=== PATIENT | male | born 1930 | race Caucasian/White ===

== ENCOUNTER 2017-12-04 08:22 | Inpatient (IN) | payer OTHER, BC ==
--- NOTE | 2017-12-04 08:56 | EDPHY ---
H & P Time Seen by Provider: 12/04/17 08:54 HPI/ROS: Chief complaint. Unable to sleep HPI. Patient is an 87-year-old male presents emergency department with complaint of hard time sleeping last few nights. [place] and waking up in the middle and night and unable to go back to sleep. He has been coughing somewhat. However denies chest discomfort or fever. Slight shortness of breath with lying down. He has a history of atrial fibrillation and is on Coumadin. No abdominal pain. No unusual leg pain or swelling. Patient is unable to feel palpitations or irregular heartbeat ROS Constitutional. Insomnia Eyes. no problems with vision ENT. no sore throat, no nasal drainage Cardiovascular. no chest pain Respiratory. Cough and some shortness of breath Abdominal. no abdominal pain, no nausea/vomiting, no diarrhea . no problems urinating MS. no calf pain/swelling, no neck/back pain, no joint pain Skin. no rash Lymph. no swollen glands Neuro. no headache, no dizziness, no difficulty walking or with speech Past Medical/Surgical History: Past medical history is significant for atrial fibrillation, hypertension hiatal hernia, lymphoma Social History: , nonsmoker, no alcohol Smoking Status: Never smoked Physical Exam: General Appearance: Alert well-developed male mild distress Eyes: Pupils equal and round no pallor or injection. ENT, Mouth: Mucous membranes are moist. Respiratory: There are no retractions, lungs show rales to auscultation. Cardiovascular: Irregularly irregular rate and rhythm with rapid ventricular response Gastrointestinal: Abdomen is soft and nontender, no masses, bowel sounds normal. Neurological: Awake and alert, sensory and motor exams grossly normal. Skin: Warm and dry, no rashes. Musculoskeletal: Neck is supple nontender. Extremities symmetrical, full range of motion. Psychiatric: Patient is oriented X 3, there is no agitation. Constitutional: Initial Vital Signs Temperature (C) 36.7 C 12/04/17 08:30 Heart Rate 101 H 12/04/17 08:30 Respiratory Rate 16 12/04/17 08:30 Blood Pressure 139/91 H 12/04/17 08:30 O2 Sat (%) 92 12/04/17 08:30 O2 Delivery Mode Nasal Cannula O2 (L/minute) 2 Allergies/Adverse Reactions: No Allergies [NKDA] Allergy (Verified 12/04/17 11:21) Home Medications: Medication Instructions Recorded Allopurinol [Allopurinol 100 MG 100 mg PO DAILY 12/04/17 (*)] Dicloxacillin Sodium [Dynapen 500 500 mg PO DAILY 12/04/17 MG (*)] Levothyroxine [Synthroid 75 mcg 75 mcg PO DAILY06 12/04/17 (*)] Multivitamins [Multivitamin (*)] 1 each PO DAILY 12/04/17 Omeprazole 40 mg PO DAILY 12/04/17 Warfarin Sodium [Coumadin 5MG (*)] 5 mg PO MOWEFR 12/04/17 Warfarin Sodium [Coumadin 5MG (*)] 7.5 mg PO SUTUTHSA 12/04/17 amLODIPine BESYLATE [Norvasc 10 mg 10 mg PO DAILY 12/04/17 (*)] Medical Decision Making - Diagnostics EKG Interpretation: EKG interpreted by me EKG is read by computer is supraventricular tachycardia however I think that this is atrial fibrillation. Left axis deviation. QRS is otherwise normal. No significant ST elevation or depression. Ventricular response 164 Imaging Results: Imaging Impressions Chest X-Ray 12/04/17 09:04 Impression: Congestive heart failure. Chest x-ray interpreted by me is significant for congestive heart failure. Appears to be bilateral pleural effusions. Procedures: IV normal saline, monitor. Diltiazem 10 mg intravenously and then diltiazem drip is ordered ED Course/Re-evaluation: I consulted discussed the case with Dr. Kang for cardiology who sees the patient in the emergency I consulted discussed case with for Cardiology who sees the patient in the emergency department I consulted discussed case with Dr. Garza, hospitalist, who agrees to the admission The patient is and I discussed imaging lab EKG findings. We discussed treatment plan including recommendation for admission. They expressed understanding and agreement Differential Diagnosis: This appears to be atrial fibrillation with congestive heart failure. I considered acute coronary syndrome as well as pneumonia. - Data Points Laboratory Results: Laboratory Results 12/04/17 08:55 12/04/17 08:55 12/04/17 12/04/17 12/04/17 10:00 09:07 08:55 WBC RBC Hgb Hct MCV MCH MCHC RDW Plt Count PT INR APTT Sodium Potassium Chloride Carbon Dioxide Anion Gap BUN Creatinine Estimated GFR Glucose Calcium Magnesium 1.7 mg/dL mg/dL (1.6-2.3) Total Bilirubin AST ALT Alkaline Phosphatase POC Troponin I 0.00 ng/mL ng/mL (0.00-0.08) NT-Pro-B Natriuret Pep 2730 pg/mL H pg/mL (0-450) Total Protein Albumin TSH 3.440 uIU/mL uIU/mL (0.465-4.680) 12/04/17 12/04/17 12/04/17 08:55 08:55 08:55 WBC 9.59 10^3/uL H 10^3/uL (3.80-9.50) RBC 4.80 10^6/uL 10^6/uL (4.40-6.38) Hgb 14.0 g/dL g/dL (13.7-17.5) Hct 41.9 % % (40.0-51.0) MCV 87.3 fL fL (81.5-99.8) MCH 29.2 pg pg (27.9-34.1) MCHC 33.4 g/dL g/dL (32.4-36.7) RDW 15.6 % H % (11.5-15.2) Plt Count 307 10^3/uL 10^3/uL (150-400) PT 26.8 SEC H SEC (12.0-15.0) INR 2.48 H (0.83-1.16) APTT 39.3 SEC H SEC (23.0-38.0) Sodium 139 mEq/L mEq/L (135-145) Potassium 4.5 mEq/L mEq/L (3.3-5.0) Chloride 106 mEq/L mEq/L (97-110) Carbon Dioxide 24 mEq/l mEq/l (22-31) Anion Gap 9 mEq/L mEq/L (8-16) BUN 18 mg/dL mg/dL (7-23) Creatinine 1.0 mg/dL mg/dL (0.7-1.3) Estimated GFR > 60 Glucose 124 mg/dL H mg/dL (70-100) Calcium 9.4 mg/dL mg/dL (8.5-10.4) Magnesium Total Bilirubin 1.0 mg/dL mg/dL (0.1-1.4) AST 66 IU/L H IU/L (17-59) ALT 83 IU/L H IU/L (21-72) Alkaline Phosphatase 76 IU/L IU/L (38-126) POC Troponin I NT-Pro-B Natriuret Pep Total Protein 6.9 g/dL g/dL (6.3-8.2) Albumin 4.0 g/dL g/dL (3.5-5.0) TSH Medications Given: Furosemide (Lasix Injection) 20 mg IVP BIDDIUR CORY Stop: 06/02/18 14:59 Last Admin: 12/04/17 13:40 Dose: 20 mg Amiodarone HCl (Amiodarone Hcl) 200 mls @ 33.333 mls/hr IV ONCE ONE PRN Reason: Protocol Stop: 12/04/17 18:59 Last Admin: 12/04/17 14:04 Dose: 200 mls Discontinued Medications Diltiazem HCl (Cardizem 25 Mg/5 Ml Vial) 20 mg IVP EDNOW ONE Stop: 12/04/17 09:04 Last Admin: 12/04/17 09:09 Dose: 20 mg Diltiazem HCl 125 mg/ Dextrose 125 mls @ 0 mls/hr IV EDNOW ONE; As Directed PRN Reason: Protocol Stop: 12/04/17 09:04 Last Admin: 12/04/17 09:39 Dose: 125 mls Sodium Chloride (Ns) 1,000 mls @ 0 mls/hr IV EDNOW ONE; Wide Open PRN Reason: Protocol Stop: 12/04/17 09:04 Last Admin: 12/04/17 09:10 Dose: 1,000 mls Amiodarone HCl (Amiodarone Hcl) 100 mls @ 600 mls/hr IV ONCE ONE Stop: 12/04/17 13:09 Last Admin: 12/04/17 13:40 Dose: 100 mls Point of Care Test Results: Chemistry 12/04/17 09:07 POC Troponin I 0.00 ng/mL ng/mL (0.00-0.08) Departure - Departure Disposition: [facility] Inpatient Acute Clinical Impression: Atrial fibrillation Qualifiers: Atrial fibrillation type: unspecified Qualified Code(s): I48.91 - Unspecified atrial fibrillation Congestive heart failure Qualifiers: Heart failure type: unspecified Heart failure chronicity: unspecified Qualified Code(s): I50.9 - Heart failure, unspecified Condition: Fair
[2017-12-04] MEDS ORDERED: NS 1,000 ML IV ONE (09:03)
[2017-12-04] MEDS ORDERED: DILTIAZEM 25 MG/5 ML VIAL IVP ONE (09:03)
[2017-12-04] MEDS ORDERED: DILTIAZEM 125 MG in D5W 125 ML IV ONE (09:03)
[2017-12-04 09:23] LABS: INR 2.48 (0.83-1.16); PROTIME(PATIENT) 26.8 SEC (12.0-15.0)
--- NOTE | 2017-12-04 11:45 | GCON ---
[f rep st] CONSULTATION DATE OF CONSULTATION: 12/04/2017 REFERRING PHYSICIAN: Jim Garrido MD INDICATION FOR CONSULTATION: Atrial fibrillation with rapid ventricular response and symptoms consis tent with new onset congestive heart failure. HISTORY OF PRESENT ILLNESS: The patient is a pleasant 87-year-old gentleman who presents to [facility] Emergency Department with complaints of difficulty sleeping and fatigue. He repor ts that over the last several days, he has been waking up around midnight or 1 o'clock in the morning and unable to go back to sleep. He states he typically goes to bed around 9 o'clock to 9:30. He fung s noted that when he wakes up he feels short of breath. He has also required 3 pillows to be comfort able, which is new for him. He has also noticed a 3 pounds weight gain and new onset of ankle edema. The patient has a known history of atrial fibrillation dating back to 2012, at the time of a hernia r epair surgery. He has been followed by my colleague, Dr. Bridger Mota for paroxysmal atrial fibril lation. He has remained on anticoagulation for stroke risk reduction with Coumadin. His INR has bee n therapeutic dating back to October 07, 2017, with a value of 3.23. His INR today is 2.48. The patient in the past has not been able to detect when he is in atrial fibrillation. At the time o f my examination he is in atrial fibrillation with rapid ventricular response at approximately 160 be ats per minute. He is unaware of his atrial fibrillation. He describes since early September feeling more dyspneic with exertion. He has also noted exertional intolerance and fatigue. He describes yesterd ay walking from the [employer] over to [facility] and was markedly fatigued and short of breat h. He has also noticed increased coughing. He denies complaints of chest pain, chest pressure, palpitations, dizziness, lightheadedness, near sy ncope, or syncope. No complaints of nausea, vomiting, or diaphoresis. No recent viral illness. He has recently returned from a trip to [place]. 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 Currently at the time of my exam, he is resting comfortably without complaint, in atrial fibrillation at 160 beats per minute. He is currently on a diltiazem drip. REVIEW OF SYSTEMS: 10-point review of systems is negative with the exception of those items listed a keyonna. PAST MEDICAL HISTORY: Paroxysmal atrial fibrillation initially detected in 2012, at the time, hernia repair surgery, BPH, GERD, gout, history of lymphoma treated with R-CHOP in 2002, hypertension, hypo thyroidism, peripheral neuropathy, peripheral vascular disease, history of shingles, encephalitis. PAST SURGICAL HISTORY: Appendectomy, hiatal hernia repair, bilateral knee replacements in 2005. Of note, he is on chronic antibiotic suppressive therapy after a knee infection requiring incision an d drainage. MEDICATIONS: On admission, include allopurinol 100 mg daily, dicloxacillin 500 mg daily, lysine 1000 mg daily, multivitamin daily, Norvasc 10 mg daily, PreserVision caplet daily, Prilosec 40 mg daily, Synthroid 75 mcg daily, Viagra 100 mg half tablet by mouth p.r.n., Coumadin as directed. Most recent INR today of 2.48. ALLERGIES: No known allergies to medications. SOCIAL HISTORY: He is . He lives with his . He is a lifelong nonsmoker. He does drink approximately 2 glasses of wine per night. He states he may consume more alcohol during his recent t rip to [facility]. 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 PHYSICAL EXAMINATION: VITAL SIGNS: Blood pressure 126/101, heart rate of 136 in atrial fibrillation , respiratory rate of 20, oxygen saturation 94% on 2 L. GENERAL: He is awake, alert, oriented, appr opriate in no apparent distress. NECK: There is no evidence of JVP sitting at 45 degree angle. No evidence of carotid bruits. LUNGS: Demonstrate clear breath sounds bilaterally. CARDIAC: S1, S2. Irregularly irregular, tachycardic. No murmurs, rubs, or gallops. ABDOMEN: Soft, nontender, nondi stended. There is no pulsatile mass or abdominal bruits. EXTREMITIES: He does have trace bilateral ankle edema, right slightly greater than left. NEUROLOGIC: He is awake, alert, oriented, appropria te. No focal neurologic findings. Cranial nerves are intact. DATA: ECG demonstrates atrial fibrillation with rapid ventricular response, left axis deviation. No evidence of ischemic changes. White blood cell count 9.59, hemoglobin of 14, hematocrit 41.9, platelet count 307. INR 2.48. Sodiu m 139, potassium 4.5, chloride 106, bicarb 24, BUN 18, creatinine 1, calcium 9.4, magnesium pending. AST 66, ALT 83. N terminal proBNP 2730. TSH pending. Albumin 4, total protein 6.9. Chest x-ray demonstrates moderate cardiomegaly with an increased interstitial markings in both lungs consistent with pulmonary edema. No evidence of pleural effusion or pneumothorax. SUMMARY: The patient is pleasant 87-year-old gentleman who presents today with several days of sympt oms consistent with paroxysmal nocturnal dyspnea and orthopnea. He has a known history of paroxysmal atrial fibrillation dating back to 2012, that has been asymptomatic. I am concerned he has been in atrial fibrillation for at least several weeks with rapid ventricular response. Concern about tachy mediated myopathy in the setting of elevated BNP, 3 pounds weight gain, new onset of lower extremity edema, and chest x-ray consistent with early stages of congestive heart failure. He is currently n.p .o. His INR has been therapeutic on multiple checks. On October 07, he was 3.23; on October 28, he was 3.2; on November 18, he was 2.5; and today he is 2.48. Magnesium and TSH are pending. Echocardiogram is pending this morning. Would like to review echocar diogram, magnesium, and TSH before considering cardioversion later today. He is currently on diltiaz em drip. Would not give further boluses at this point until we can reassess his left ventricular fun ction. May ultimately switch to amiodarone. I think he needs admission and he will require further workup, including risk stratification for unde rlying causes of atrial fibrillation, including potentially stress testing. Our focus will primarily initially be on a rate control versus return to sinus rhythm. PLAN: 1. Continue diltiazem drip at this point without further boluses. 2. Echocardiogram to be performed this morning. 3. Patient will continue with current dose of Coumadin. 4. Magnesium and TSH results pending. 5. Will consider cardioversion potentially later today depending on the results of echocardiogram. 6. Will continue to follow along with his care. /[id number]/MODL
--- NOTE | 2017-12-04 12:03 | ECHO ---
[email or web address] [address] [address] Main: [phone] Fax: [email or web address] Echocardiogram Name: CASTILLO NEAL MR#: [id number] Study Date: 12/04/2017 Study Time: 11:27 AM Date of : 1930 Age: 87 year(s) Height: 188 cm (74 in.) Weight: 86.18 kg (190 lb.) BSA: 2.13 m2 Gender: Male Examination: Echo Indication: A fib Image Quality: Adequate Contrast: Requested by: Jim Garrido BP: 125 mmHg/106 mmHg Heart Rate: Rhythm: Indication: A fib Procedure Staff Lawn Care Worker: Cherri Early [facility] Reading Physician: Antonio Kang MD Requesting Provider: Conclusions: Normal size left ventricle. Mild to moderate LVH. Moderately reduced systolic LV function. The ejection fraction is estimated to be 30-35 %. Mildly dilated right ventricle. Normal RV function. The left atrium is severely dilated. The right atrium is moderately dilated. Moderate to severe mitral regurgitation. Mild tricuspid regurgitation is present. Right ventricular systolic pressure measures 41mmHg. No pericardial effusion. Measurements: Chambers Valvular Assessment AV/MV Valvular Assessment TV/PV Normal Normal Normal Name Value Range Name Value Range Name Value Range Ao Maci (2D): 3.9 cm (1.4 cm-2.6 AV Vmax: 0.98 m/s (1 m/s-1.7 TR Vmax: 2.99 mm/s ( - ) cm) m/s) TR PGmax: 36 mmHg ( - ) IVSd (2D): 1.1 cm (0.6 cm-1.1 AV maxP mmHg ( - ) syst. PAP: 41 mmHg ( - ) cm) AV meanP mmHg ( - ) PV Vmax: 0.62 m/s (0.6 m/s-0.9 LVDd (2D): 3.8 cm (4.2 cm-5.9 LVOT Vmax: 0.90 m/s (0.7 m/s-1.1 m/s) cm) m/s) PV PGmax: 2 mmHg ( - ) LVDs (2D): 3.4 cm (2.1 cm-4 ZANE (Vmax): 3.5 cm2 ( - ) cm) ZANE (VTI): 3.7 cm ( - ) LVPWd (2D): 1.1 cm (0.6 cm-1 MV E Vmax: 1.22 m/s ( - ) cm) MV PHT: 0.036 s ( - ) LVOTd 2.2 cm 2.2 cm mm MVA (PHT): 6.1 s ( - ) EF Range: 30-35 % RVDd(2D): 3.2 cm (1.9 cm-3.8 cmmm) Patient: CASTILLO NEAL Study Date: 12/04/2017 Page 1 of 2 11:27 AM Continued Measurements: Chambers Valvular Assessment AV/MV Valvular Assessment TV/PV Name Value Name Value Name Value LADs: 4.2 cm MV DecTime: 123 m/s CVP (est.): 5 mmHg LADs Lon.5 cm MR ERO: 0.550 cm2 LA Area: 33.1 cm2 MR PISA radius: 10 mm LA Volume: 129 ml MR Reg. Volume: 67 ml LA Volume Index: 60.6 ml/m2 RA Area: 28.8 cm2 Findings: Left Ventricle: Normal size left ventricle. Mild to moderate LVH. Moderately reduced systolic LV function. The ejection fraction is estimated to be 30-35 %. Unable to assess diastolic dysfunction. Right Ventricle: Mildly dilated right ventricle. Normal RV function. Left Atrium: The left atrium is severely dilated. Right Atrium: The right atrium is moderately dilated. Mitral Valve: Mild mitral valve leaflet calcification is present. Moderate mitral annular calcification. Moderate to severe mitral regurgitation. Aortic Valve: The aortic valve is tri-leaflet. There is no significant aortic valve regurgitation. No aortic valve stenosis is present. Tricuspid Valve: The tricuspid valve is normal in appearance and function. Mild tricuspid regurgitation is present. The pulmonary artery pressure is mildly increased. Right ventricular systolic pressure measures 41mmHg. Pulmonic Valve: The pulmonic valve is normal in appearance and function. There is no pulmonic regurgitation seen. Aorta: The aorta is normal. Normal size aortic root measuring 3.9 cm. IVC: Subcostal not well seen. Pericardium: No pericardial effusion. No pleural effusion. Exam Comments: Patient refuses to lay on left side, technically difficult. (No Signature Object) Patient: CASTILLO NEAL Study Date: 12/04/2017 Page 2 of 2 11:27 AM [id number]
[2017-12-04] MEDS ORDERED: AMIODARONE HCL 540 MG in D5W 300 ML IV ONE (12:30)
[2017-12-04] MEDS ORDERED: AMIODARONE HCL 200 ML IV ONE (12:31)
[2017-12-04] MEDS ORDERED: AMIODARONE HCL 100 ML IV ONE (12:31)
[2017-12-04] MEDS ORDERED: AMIODARONE A.FIB-6HR INFSN (ORDER 2/3) PREMIX IV ONE (13:00)
[2017-12-04] MEDS ORDERED: AMIODARONE A.FIB-LOAD DOSE(ORDER 1/3) PREMIX IV ONE (13:00)
--- NOTE | 2017-12-04 13:13 | PDGENHP ---
History and Physical History and Physical: CC: Orthopnea and fatigue HISTORY: This gentleman who has history of 1 episode of atrial fibrillation after a hernia surgery in 2013 but no other heart history, comes into the ER complaining of gradually worsening fatigue, exertional dyspnea, orthopnea, and paroxysmal nocturnal dyspnea. He has had a little ankle swelling and some weight gain as well. He is not entirely clear on the time course of this change. He has not had any palpitations or chest pain, nor did he have any palpitations with his prior episode of AFib. He is on a low-salt diet and has had no change in medications. He has not had a cough or fevers. He did travel from here to [facility] and back a little over week ago for his son's wedding. He has been on chronic Coumadin anticoagulation and it sounds like that has gone well for him. His most recent echocardiogram is in 2012 which showed ejection fraction 60% and mild mitral regurgitation otherwise unremarkable. Note that the patient's memory is slightly impaired, possibly due to his past history of closed head injury. There could be some potential in accuracy in the history as he presented. His is not currently here to confirm details. However he is given a consistent story to eat to the practitioners here today so far ROS: A comprehensive 10 system review revealed no other significant findings PAST MEDICAL HISTORY: Paroxysmal atrial fibrillation Peripheral vascular disease Lymphoma Shingles Incarcerated hernia repair Acute encephalitis Hypothyroidism Easy bruising Hypertension Closed head injury Peripheral neuropathy Reflux, history of esophageal dilation, presbyesophagus UTI Low testosterone Gout Osteoarthritis Appendectomy Total knee replacements ERectile dysfunction BPH Joint infection FAMILY MEDICAL HISTORY: No significant concerning issues for his current illness SOCIAL HISTORY: 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 I have reviewed the list and ordered appropriate medicines. 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 Kang. 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 Kang, will continue the bolus and loading doses intravenously, eventual transition to p.o. * Plan on possible cardioversion tomorrow if he does not convert on the amiodarone * May need to add some beta-charo for additional rate control if he stays in AFib * Diuresis with intravenous Lasix * Continue current Coumadin * Follow electrolytes closely, magnesium level currently pending * Follow liver enzymes for resolution with treatment of his heart failure; if these do not resolve may need assessment for other possible causes * will need some type of coronary assessment at some point, will review this further with Cardiology as we go along I have reviewed the patient's case in detail with Dr. Bridger Kang I have reviewed the patient's past medical records as part of this assessment, including previous hospital admission records and outpatient clinic records echocardiogram reports lab data etc
[2017-12-04] MEDS ORDERED: DILTIAZEM 125 MG in D5W 125 ML IV SCH (13:15)
[2017-12-04] MEDS: FUROSEMIDE 20 MG/2 ML VIAL IVP SCH (13:40)
[2017-12-04] MEDS ORDERED: ACETAMINOPHEN 325 MG TAB PO PRN (13:47)
[2017-12-04] MEDS ORDERED: ZOLPIDEM TARTRATE 5 MG TAB PO PRN (13:47)
[2017-12-04] MEDS ORDERED: ONDANSETRON 4 MG/2 ML VIAL IVP PRN (13:47)
--- NOTE | 2017-12-04 15:59 | CPEKG ---
Test Reason : OPEN Blood Pressure : / mmHG Vent. Rate : 164 BPM Atrial Rate : 169 BPM P-R Int : 126 ms QRS Dur : 084 ms QT Int : 293 ms P-R-T Axes : 030 -36 046 degrees QTc Int : 484 ms atrial fibrillation with RVRa Left axis deviation ST depression, probably rate related Confirmed by Jim Garrido [id number]) on 12/04/2017 3:59:09 PM Referred By: Confirmed By:Jim Garrido
[2017-12-04] MEDS ORDERED: WARFARIN SODIUM 5 MG TAB PO SCH (16:00)
[2017-12-04] MEDS ORDERED: CALCIUM CARBONATE 500 MG CHEWABLE TAB PO PRN (16:17)
[2017-12-04] MEDS: MAGNESIUM OXIDE 400 MG TAB PO SCH (16:47)
--- NOTE | 2017-12-04 17:16 | PDMN ---
Medical Necessity Medical necessity: Pt meets IP criteria per MD & MCG M-505; est los >2 mn for eval/tx of AFIB w/RVR & heart failure w/worsening fatigue, exertional dyspnea, orthopnea, cardiomyopathy with EF of 30-35% & elevated hepatic transaminases; requiring further cardiac monitoring, IV Amiodarone, IV Diltiazem, IV Lasix, Cardiology consult w/possible cardioversion & follow-up labs; hx AFIB on AC, PVD , lymphoma, mod to severe mitral regurgitation; per H&P & order 12/04/17
[2017-12-04] MEDS ORDERED: AMIODARONE A.FIB-18HR INFSN (ORDER 3/3) IV ONE (20:00)
[2017-12-04] MEDS ORDERED: FUROSEMIDE 20 MG/2 ML VIAL IVP ONE (20:15)
[2017-12-04] MEDS: CARVEDILOL 3.125 MG TAB PO SCH (20:28)
[2017-12-05 04:06] LABS: INR 2.65 (0.83-1.16); PROTIME(PATIENT) 28.2 SEC (12.0-15.0)
[2017-12-05] MEDS: LEVOTHYROXINE 75 MCG TAB PO SCH (06:00)
[2017-12-05] MEDS ORDERED: DILTIAZEM 30 MG TAB PO ONE (09:01)
[2017-12-05] MEDS: MAGNESIUM OXIDE 400 MG TAB PO SCH (09:19)
[2017-12-05] MEDS: PANTOPRAZOLE SODIUM 40 MG TAB PO SCH (09:19)
[2017-12-05] MEDS: CARVEDILOL 3.125 MG TAB PO SCH ×2 (09:19→18:24)
[2017-12-05] MEDS: ALLOPURINOL 100 MG TAB PO SCH (09:19)
[2017-12-05] MEDS ORDERED: NS 1,000 ML IV ONE (09:44)
--- NOTE | 2017-12-05 10:40 | PDCARPN ---
Cardiology Progress Note Assessment/Plan: 87 year-old male known to me from the outpatient setting. Persistent Atrial Fibrillation/Rapid Ventricular Response: Heart rate improved on IV amiodarone but still running 100-120 bpm. - Single PO dose of diltiazem to assist with ventricular rate control. - Plan for JASON/cardioversion later today. - Continue systemic anticoagulation. Cardiomyopathy: This is a new issue. Had normal LV function by echo in 2012. Currently, LVEF is moderately to severely decreased at 30-35%. Presumably tachycardia mediated (i.e.- nonischemic). Acute Systolic CHF: BNP is significantly elevated. Good response to yesterday's intravenous furosemide. I/O negative by 1100 cc. - Continue IV furosemide. 12/05/17 10:37 Subjective: No complaints. Objective: Vital Signs (8 Hrs) Temp Pulse Resp BP Pulse Ox 12/05/17 09:19 128 H 12/05/17 07:30 36.6 C 110 H 18 135/90 H 92 12/05/17 04:00 36.4 C 119 H 20 125/97 H 94 Intake/Output (24 Hrs) 12/04/17 12/05/17 12/06/17 05:59 05:59 05:59 Intake Total 1000 349 Output Total 2100 175 Balance -1100 174 Intake: Oral (ml) 1000 IV Infused (ml) 349 Amiodarone HCl 200 ml @ 200 33.333 mls/hr IV ONCE ONE Rx#:[id number] Amiodarone HCl 540 mg In 149 D5w 300 ml @ 16.667 mls/ hr IV ONCE ONE Rx#: [id number] Output: Urine (ml) 2100 175 Urinal 2100 175 Other: Weight 88.2 kg Number of Voids Toilet 1 Urinal 2 1 Number of Stools Toilet 1 Result Diagrams: 12/04/17 08:55 12/05/17 03:18 Cardiac Labs: Cardiac Lab Results (72 Hrs) 12/04/17 13:14 Troponin I < 0.012 - Physical Exam Constitutional: no apparent distress Eyes: anicteric sclera Ears, Nose, Mouth, Throat: moist mucous membranes Cardiovascular: no murmurs, no gallops, irregularly irregular Respiratory: clear to auscultate bilat Gastrointestinal: normoactive bowel sounds, no tenderness, no masses Skin: other (minimla edema) Neurologic: AAOx3 Psychiatric: not anxious ICD10 Worksheet Patient Problems: Problems Problem Status Onset Atrial fibrillation Acute Congestive heart failure Acute
[2017-12-05] MEDS: FUROSEMIDE 20 MG/2 ML VIAL IVP SCH ×2 (10:51→11:00)
[2017-12-05] MEDS: DICLOXACILLIN NA 500 MG CAP PO SCH (10:59)
[2017-12-05] MEDS: MULTIVITAMINS 1 EACH TAB PO SCH (11:00)
--- NOTE | 2017-12-05 13:07 | HOSPPROG ---
Hospitalist Progress Note Assessment/Plan: DIAGNOSES: * acute systolic and arrhythmic congestive heart failure no prior history of heart failure * new onset cardiomyopathy ejection fraction 30-35%, unknown etiology, consider AFib induced * rapid AFib with 1 prior episode of AFib after surgery years ago; on chronic therapeutic Coumadin not on rate control prior to admission The patient is improved after diuresis overnight. His heart rate is still rapid with the addition of amiodarone and Coreg which is at low dose (he did not appear to respond to diltiazem drip yesterday, and Coreg was started instead due to his cardiomyopathy) PLANS: * Continue carvedilol IV drip and switch to p.o. 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: Rapid AFib now mostly in the 110-115 range Exam: alert oriented relaxed skin warm dry color ok resps not labored lungs clear BSs heart irregular with tachycardia, no murmurs or gallops abd soft nondistended nontender, bowel sounds present limbs warm, no edema iv site ok Laboratory data: Stable CBC INR 2.6 Objective: Vital Signs Temp Pulse Resp BP Pulse Ox 36.9 C 129 H 18 122/88 H 92 12/05/17 11:19 12/05/17 11:19 12/05/17 11:19 12/05/17 11:19 12/05/17 11:19 Laboratory Results 12/05/17 03:18 12/04/17 12/05/17 12/06/17 06:59 06:59 06:59 Intake Total 1349 Output Total 2100 935 Balance -751 -935 PT 28.2 SEC (12.0-15.0) H 12/05/17 03:18 INR 2.65 (0.83-1.16) H 12/05/17 03:18 ICD10 Worksheet Patient Problems: Problems Problem Status Onset Atrial fibrillation Acute Congestive heart failure Acute
--- NOTE | 2017-12-05 14:12 | ASMTCASEMG ---
Living Arrangements What is your living Answers: With Spouse arrangement? Who do you live with? Type Of Residence What kind of residence do Answers: House you live in? Discharge Plan Comments Coordination Status Comments Notes: Pts case discussed in tx rounds. Pt is a 87 y/o man admitted for afib and CHF. Pt is a relatively healthy and active individual. Pt will have a kenna cardioversion today. Pt will most likely d/c independent when medically stable. No therapies ordered at this time. CM available for changes. Plan: Independent Date Signed: 12/05/2017 02:11 PM Electronically Signed By:TAWANA Martinez
[2017-12-05] MEDS ORDERED: AMIODARONE HCL 100 ML IV ONE (15:30)
[2017-12-05] MEDS ORDERED: WARFARIN SODIUM 5 MG TAB PO SCH (16:00)
[2017-12-05] MEDS ORDERED: DIGOXIN 500 MCG/2 ML AMP IVP ONE (16:21)
[2017-12-05] MEDS: AMIODARONE HCL 200 ML IV SCH (17:24)
[2017-12-05] MEDS ORDERED: HYALURONIDASE 150 UNIT/ML VIAL IF ONE (19:00)
[2017-12-05] MEDS: DIGOXIN 500 MCG/2 ML AMP IVP SCH (22:21)
[2017-12-06] MEDS: AMIODARONE HCL 200 ML IV SCH ×2 (01:59→08:33)
[2017-12-06 04:32] LABS: INR 2.84 (0.83-1.16); PROTIME(PATIENT) 29.7 SEC (12.0-15.0)
[2017-12-06] MEDS: DIGOXIN 500 MCG/2 ML AMP IVP SCH (05:32)
[2017-12-06] MEDS ORDERED: ATROPINE SULFATE 1 MG/10 ML SYR ONE (09:23)
[2017-12-06] MEDS ORDERED: PROPOFOL/EMULSION 500 MG/50 ML BOTTLE IV ONE (09:45)
[2017-12-06] MEDS ORDERED: LIDOCAINE 2% 100 MG/5 ML SYR ONE (09:45)
--- NOTE | 2017-12-06 09:55 | PDANEPAE ---
ANE Past Medical History - Cardiovascular History Hx Hypertension: Yes Hx Arrhythmias: Yes Hx Coronary Artery / Peripheral Vascular Disease: No Cardiovascular History Comment: A FIB DX . NO CP - Pulmonary History Hx COPD: No Hx Asthma/Reactive Airway Disease: No Hx Recent Upper Respiratory Infection: No Hx Oxygen in Use at Home: No Hx Sleep Apnea: No Pulmonary History Comment: NO SOB W STAIRS - Neurologic History Hx Cerebrovascular Accident: No Hx Seizures: No Hx Dementia: No Neurologic History Comment: NEUROPATH JOSELITO TOES - Endocrine History Hx Diabetes: No Endocrine History Comment: LO THYROID RT RADIATION POST LYMPHOMA DX - Renal History Hx Renal Disorders: No - Liver History Hx Hepatic Disorders: No - Neurological & Psychiatric Hx Hx Neurological and Psychiatric Disorders: No - Cancer History Hx Cancer: Yes Cancer History Comment: LYMPHOMA DX '03- TX W CHEMO AND RADIATION - Congenital Disorder History Hx Congenital Disorders: No - GI History Hx Gastrointestinal Disorders: Yes Gastrointestinal History Comment: VENTRAL HERNIA. GERD - Other Health History Other Health History: 1 MISSING TOOTH UPPER R. BRUISES EASILY, TAKES WARFARIN. SHOULDER L DISLOCATION 2012. GOUT. HAD POST OP INFECTION POST KNEE SURG, ON PROPHYLACTIC ANTIBX DAILY - Chronic Pain History Chronic Pain: No - Surgical History Prior Surgeries: APPY. TONSILS. JOSELITO KNEE REPL X2 R, X1L. HIATAL HERNIA REP . UMB HERNIA REP. CATARACTS JOSELITO. PORT ANE Review of Systems Review of Systems: ANE Patient History - Allergies Allergies/Adverse Reactions: No Allergies [NKDA] Allergy (Verified 12/04/17 11:21) - Home Medications Home Medications: Allopurinol [Allopurinol 100 MG (*)] 100 mg PO DAILY 12/04/17 [Last Taken ] Dicloxacillin Sodium [Dynapen 500 MG (*)] 500 mg PO DAILY 12/04/17 [Last Taken 12/04/17] Levothyroxine [Synthroid 75 mcg (*)] 75 mcg PO DAILY06 12/04/17 [Last Taken ] Multivitamins [Multivitamin (*)] 1 each PO DAILY 12/04/17 [Last Taken 12/04/17] Omeprazole 40 mg PO DAILY 12/04/17 [Last Taken 12/04/17] Warfarin Sodium [Coumadin 5MG (*)] 5 mg PO MOWEFR 12/04/17 [Last Taken 12/02/17] Warfarin Sodium [Coumadin 5MG (*)] 7.5 mg PO SUTUTHSA 12/04/17 [Last Taken 12/03] amLODIPine BESYLATE [Norvasc 10 mg (*)] 10 mg PO DAILY 12/04/17 [Last Taken ] - Smoking Hx Smoking Status: Never smoked - Family Anes Hx Family Hx Anesthesia Complications: NONE ANE Labs/Vital Signs - Labs Result Diagrams: 12/04/17 08:55 12/05/17 03:18 - Vital Signs Blood Pressure: 107/84 Heart Rate: 115 Respiratory Rate: 12 O2 Sat (%): 91 Height: 187.96 cm Weight: 89.1 kg ANE Physical Exam - Airway Neck exam: FROM Mallampati Score: Class 2 Mouth exam: poor dentition - Pulmonary Pulmonary: no respiratory distress - Cardiovascular Cardiovascular: regular rate and rhythym - ASA Status ASA Status: III ANE Anesthesia Plan Total IV Anesthesia: Yes
--- NOTE | 2017-12-06 10:16 | POSTANESTH ---
Post Anesthetic Evaluation Cardiovascular Status: Normal, Stable Respiratory Status: Similar to Pre-op Cond. Level of Consciousness/Mental Status: Mildly Sleepy, Arousable Pain Control: Adequate, Prn Tx Ordered Nausea/Vomiting Control: Adequate, Prn Tx Ordered Complications Possibly Related to Anesthesia: None Noted
--- NOTE | 2017-12-06 10:25 | PDTEE1 ---
JASON Cardioversion Procedure Procedure: electrical cardioversion, transesophageal echo Indications: atrial fibrillation Consent: signed and in chart Anticoagulation: warfarin Procedural Details: Pads were placed in anterior-posterior position. JASON probe was advanced and standard images obtained. There is no evidence of left atrial or left atrial appendage thrombus. Synchronized cardioversion attempt #1: 200J Results: normal sinus rhythm Conclusions: successful cardioversion Patient Problems: Problems Problem Status Onset Atrial fibrillation Acute Congestive heart failure Acute
--- NOTE | 2017-12-06 10:31 | PDCARPN ---
Cardiology Progress Note Assessment/Plan: 87 year-old male known to me from the outpatient setting. Persistent Atrial Fibrillation/Rapid Ventricular Response: Had successful cardioversion this a.m. - Continue IV amiodarone until current bag is finished; plan to continue PO 200 mg QD. - Continue systemic anticoagulation. Cardiomyopathy: This is a new issue. Had normal LV function by echo in 2012. Currently, LVEF is moderately to severely decreased at 30-35%. Presumably tachycardia mediated (i.e.- nonischemic). - Continue carvedilol. Acute Systolic CHF: BNP is significantly elevated. Good response to yesterday's intravenous furosemide. I/O negative by 1100 cc. - Continue IV furosemide. Disposition: OK for discharge to home later today. - I have sent instructions to [facility] office staff to contact the patient to arrange for a followup appointment with me within the next 2 weeks. - In the Image Searcher D/C plan, I entered and printed scrips with a year's worth of refills for his new meds: amiodarone and carvedilol. His amlodipine will be DC' ed. 12/06/17 10:36 Subjective: No CV complaints. Objective: Vital Signs (8 Hrs) Temp Pulse Resp BP Pulse Ox 12/06/17 09:55 115 H 12 107/84 H 91 L 12/06/17 08:00 36.7 C 115 H 12 107/84 H 91 L 12/06/17 04:00 36.9 C 124 H 18 112/89 H 92 Intake/Output (24 Hrs) 12/05/17 12/06/17 12/07/17 05:59 05:59 05:59 Intake Total 1000 1494 Output Total 2100 2585 Balance -1100 -1091 Intake: Oral (ml) 1000 820 IV Infused (ml) 674 Amiodarone HCl 200 ml @ 325 33.3 mls/hr IV CONT CORY Rx#:[id number] Amiodarone HCl 200 ml @ 200 33.333 mls/hr IV ONCE ONE Rx#:[id number] Amiodarone HCl 540 mg In 149 D5w 300 ml @ 16.667 mls/ hr IV ONCE ONE Rx#: [id number] Output: Urine (ml) 2100 2585 Toilet 575 Urinal 2099 2009 Other: Weight 88.2 kg 89.1 kg 89.1 kg Number of Voids Toilet 2 Urinal 2 1 Number of Stools Toilet 1 Result Diagrams: 12/04/17 08:55 12/05/17 03:18 Cardiac Labs: Cardiac Lab Results (72 Hrs) 12/04/17 13:14 Troponin I < 0.012 - Physical Exam Constitutional: no apparent distress Eyes: anicteric sclera Ears, Nose, Mouth, Throat: moist mucous membranes Cardiovascular: regular rate and rhythm, no murmurs Respiratory: clear to auscultate bilat Gastrointestinal: normoactive bowel sounds, no tenderness, no masses Skin: other (minimla edema) Neurologic: AAOx3 Psychiatric: not anxious ICD10 Worksheet Patient Problems: Problems Problem Status Onset Atrial fibrillation Acute Congestive heart failure Acute
[2017-12-06] MEDS: PANTOPRAZOLE SODIUM 40 MG TAB PO SCH (12:23)
[2017-12-06] MEDS: ALLOPURINOL 100 MG TAB PO SCH (12:23)
[2017-12-06] MEDS: CARVEDILOL 3.125 MG TAB PO SCH (12:23)
[2017-12-06] MEDS: MAGNESIUM OXIDE 400 MG TAB PO SCH (12:24)
[2017-12-06] MEDS: FUROSEMIDE 20 MG/2 ML VIAL IVP SCH (12:24)
[2017-12-06] MEDS: MULTIVITAMINS 1 EACH TAB PO SCH (12:24)
[2017-12-06] MEDS: LEVOTHYROXINE 75 MCG TAB PO SCH (12:24)
[2017-12-06] MEDS: DICLOXACILLIN NA 500 MG CAP PO SCH (12:29)
--- NOTE | 2017-12-06 12:39 | ASMTDCNOTE ---
Case Management Discharge Discharge Order Complete? Answers: Yes Patient to Obtain Answers: via Family Medications Transportation Arranged Answers: Family/Friends EMTALA Complete Answers: No Case Management Transport Answers: No Form Complete Faxed Final Orders Answers: No Agency/Facility Transfer Answers: No Report Printed & Faxed to Receiving Agency Family Notified Answers: Yes Discharge Comments Notes: Pts case discussed in tx rounds. CM spoke to Mary, significant other. She wanted resources for when she is out of town. CM provided Mary w/ list of non skilled care. Mary already has senior blue book. No other needs at this time. CM available for changes. Plan: Independent Date Signed: 12/06/2017 12:38 PM Electronically Signed By:TAWANA Martinez
--- NOTE | 2017-12-06 12:40 | ASMTLACE ---
LACE Length of stay for Answers: 2 days current admission Acuity / Level of Answers: Yes Care: Did the patient have an inpatient admission? Comorbidities - select Answers: Any tumor (including all that apply lymphoma or leukemia) Congestive heart failure Peripheral vascular disease Other Notes: AFib; HTN # of Emergency department Answers: 1-2 visits in the last 6 months Score: 12 Date Signed: 12/06/2017 12:39 PM Electronically Signed By:TAWANA Martinez
--- NOTE | 2017-12-06 13:44 | PDDCSUM ---
Discharge Summary Discharge Summary: Admission Date: 12/04/2017 Discharge Date: 12/06/2017 Admission/Discharge Diagnoses: Acute Systolic Heart failure exacerbation, new onset cardiomyopathy, A fib with rapid ventricular rate Consults: Cardiology Procedures: Cardioversion Followup: Cardiology, INR check in 2 days Hospital Course Problem List: Persistent Atrial Fibrillation with Rapid Ventricular Response: - Had successful cardioversion on morning of 12/06 - Was transitioned from IV amiodarone to continue PO 200 mg QD. - Continue systemic anticoagulation with Coumadin, INR to be checked in next 2 days Cardiomyopathy: - Currently, LVEF is moderately to severely decreased at 30-35%. Presumably tachycardia mediated (i.e.- nonischemic). - Continue carvedilol 3.125 mg BID, will start ROXI-i as an outpatient Acute Systolic CHF: BNP is significantly elevated. Good response to yesterday's intravenous furosemide. I/O negative by 1100 cc. - Discussed with Cardiology, Dr. Mota, who recommended holding PO Lasix and he will reevaluate in outpatient setting if need to restart Time spent on discharge >35 minutes with >50% of time spent on counseling and education of patient and family
[2017-12-06 14:17] VITALS: BP 123/87
--- NOTE | 2017-12-06 14:58 | ECHO ---
[email or web address] [address] [address] Main: [phone] Fax: Transesophageal Echocardiography Name: CASTILLO NEAL MR#: [id number] Study Date: 12/06/2017 Study Time: 10:01 AM Date of : 1930 Age: 87 year(s) Height: ( ) Weight: ( ) BSA: Gender: Male Examination: JASON Indication: Pre Cardioversion Image Quality: Contrast: Requested by: Bridger Mota Heart Rate: Rhythm: BP: / Procedure Staff Oceanographer Physical: Enrique Calles RDCS Reading Physician: Bridger Mota MD Requesting Provider: JASON Exam Details Measurements: Chambers Valvular Assessment AV/MV Valvular Assessment TV/PV Normal Normal Normal Name Value Range Name Value Range Name Value Range Additional Measurements: Findings: Left Ventricle: Severely reduced systolic LV function. Left Atrium: The left atrium is severely dilated. No thrombus is noted in the left atrium. Left Atrial Appendage: No thrombus in left appendage. There is low flow in in the DHIRAJ with no evidence of . Right Atrium: The right atrium is severely dilated. Mitral Valve: Moderate mitral valve regurgitation is present. Aortic Valve: The aortic valve is tri-leaflet. Exam Comments: Proceeded with successful elective DC cardioversion.. Patient: CASTILLO NEAL Study Date: 12/06/2017 Page 1 of 2 10:01 AM l1n (No Signature Object) Patient: CASTILLO NEAL Study Date: 12/06/2017 Page 2 of 2 10:01 AM [id number]
[2017-12-06] MEDS ORDERED: WARFARIN SODIUM 5 MG TAB PO SCH (16:00)
[2017-12-07] MEDS ORDERED: AMIODARONE HCL 200 MG TAB PO SCH (09:00)
--- NOTE | 2017-12-07 13:13 | CPEKG ---
Test Reason : Blood Pressure : / mmHG Vent. Rate : 060 BPM Atrial Rate : 060 BPM P-R Int : 183 ms QRS Dur : 086 ms QT Int : 483 ms P-R-T Axes : -18 -47 010 degrees QTc Int : 483 ms Sinus rhythm Inferior infarct, old Sinus rhythm has replaced atrial fibrillation as noted on prior ECG Confirmed by Edin Benoit ([id number]) on 12/07/2017 1:13:25 PM Referred By: Confirmed By:Edin Benoit
--- NOTE | 2017-12-07 13:15 | CPEKG ---
Test Reason : OPEN Blood Pressure : / mmHG Vent. Rate : 069 BPM Atrial Rate : 069 BPM P-R Int : 186 ms QRS Dur : 090 ms QT Int : 466 ms P-R-T Axes : 032 -49 016 degrees QTc Int : 500 ms Sinus rhythm Abnormal R-wave progression, early transition Inferior infarct, old Confirmed by Edin Benoit ([id number]) on 12/07/2017 1:14:53 PM Referred By: Confirmed By:Edin Benoit
[2017-12-07] MEDS ORDERED: WARFARIN SODIUM 5 MG TAB PO SCH (16:00)
== END 2017-12-06 15:24 | disposition home or self-care (01) | DRG 308 ==
LOC: F2W 11:42
PROVIDERS: ADMIT Internal Medicine; ATTEND Internal Medicine
PROC: B246ZZ4 Ultrasonography of Right and Left Heart, Transesophageal (ICD-10-PCS; principal; 2017-12-06)
PROC: 5A2204Z Restoration of Cardiac Rhythm, Single (ICD-10-PCS; principal; 2017-12-06)
DX: I48.0 Paroxysmal atrial fibrillation (principal); I11.0 Hypertensive heart disease with heart failure; I50.21 Acute systolic (congestive) heart failure; I42.9 Cardiomyopathy, unspecified; C85.90 Non-Hodgkin lymphoma, unspecified, unspecified site; E03.9 Hypothyroidism, unspecified; M10.9 Gout, unspecified; N40.0 Benign prostatic hyperplasia without lower urinary tract symptoms; K21.9 Gastro-esophageal reflux disease without esophagitis; I73.9 Peripheral vascular disease, unspecified; Z96.653 Presence of artificial knee joint, bilateral; Z79.01 Long term (current) use of anticoagulants; Z87.820 Personal history of traumatic brain injury; Z79.2 Long term (current) use of antibiotics
CPT/HCPCS: 84484-PO; 96365; 96366; J0282; J0461; J1160; J1940; J2001; J2704; J3473

== ENCOUNTER 2017-12-10 07:59 | Emergency (ER) | payer OTHER, BC ==
--- NOTE | 2017-12-10 08:07 | EDPHY ---
H & P Stated Complaint: IRREGULAR HR WITH HX OF AFIB Time Seen by Provider: 12/10/17 08:06 - Personal History Current Tetanus Diphtheria and Acellular Pertussis (TDAP): Yes Tetanus Vaccine Date: 2009 - Medical/Surgical History Hx Asthma: No Hx Chronic Respiratory Disease: No Hx Diabetes: No Hx Cardiac Disease: Yes Hx Renal Disease: No Hx Cirrhosis: No Hx Alcoholism: No Hx HIV/AIDS: No Hx Splenectomy or Spleen Trauma: No Other PMH: peripheral neuropathy - numbness toes, A FIB, HTN, Hiatal HERNIA. lymphoma. bilat TKR, shingles encephalitis, unsteadiness uses hiking poles - Social History Smoking Status: Never smoked Constitutional: Initial Vital Signs Temperature (C) 36.5 C 12/10/17 08:02 Heart Rate 93 12/10/17 08:02 Respiratory Rate 19 12/10/17 08:02 Blood Pressure 137/95 H 12/10/17 08:02 O2 Sat (%) 97 12/10/17 08:02 O2 Delivery Mode [Post Nasal Cannula Procedure 2nd] O2 Delivery Mode [Post Non-Rebreather Mask Procedure 1st] O2 Delivery Mode [Procedural Non-Rebreather Mask 3rd] O2 Delivery Mode [Procedural Non-Rebreather Mask 2nd] O2 Delivery Mode [Procedural Non-Rebreather Mask 1st] O2 Delivery Mode [.Immediate Non-Rebreather Mask Pre-Procedure] O2 Delivery Mode Room Air O2 (L/minute) [Post Procedure 2 2nd] O2 (L/minute) [Post Procedure 15 1st] O2 (L/minute) [Procedural 3rd] 15 O2 (L/minute) [Procedural 2nd] 15 O2 (L/minute) [Procedural 1st] 15 O2 (L/minute) 15 Allergies/Adverse Reactions: No Allergies [NKDA] Allergy (Verified 12/10/17 08:00) Home Medications: Medication Instructions Recorded Allopurinol [Allopurinol 100 MG 100 mg PO DAILY 12/04/17 (*)] Dicloxacillin Sodium [Dynapen 500 500 mg PO DAILY 12/04/17 MG (*)] Levothyroxine [Synthroid 75 mcg 75 mcg PO DAILY06 12/04/17 (*)] Multivitamins [Multivitamin (*)] 1 each PO DAILY 12/04/17 Omeprazole 40 mg PO DAILY 12/04/17 Warfarin Sodium [Coumadin 5MG (*)] 5 mg PO MOWEFR 12/04/17 Warfarin Sodium [Coumadin 5MG (*)] 7.5 mg PO SUTUTHSA 12/04/17 Amiodarone HCl [Pacerone (*)] 200 mg PO DAILY #30 tab 12/06/17 Carvedilol [Coreg (*)] 3.125 mg PO BIDMEAL #60 tab 12/06/17 Medical Decision Making ED Course/Re-evaluation: CHIEF COMPLAINT: Irregular heart rate HISTORY OF PRESENT ILLNESS: The patient is an anticoagulated (Coumadin) 87 y/o male with a history of atrial fibrillation and hypertension complaining of an irregular heart rate this morning. On 12/04/17, 6 days ago, he was admitted to this hospital for atrial fibrillation and had an electrical cardioversion requiring 200J. At the time of discharge he was in a normal rhythm and remained in that normal rhythm for several days. Per his , the patient was coughing more and harder than normal last night. When the patient woke up this morning he noticed the abnormal heart rate and decided to present to the emergency department. He did take Amiodarone and Coreg this morning. He denies headache, chest pain, shortness of breath, abdominal pain, urinary or bowel complaints, numbness, paresthesias, fevers. REVIEW OF SYSTEMS: A comprehensive 10 system review of systems is otherwise negative aside from elements mentioned in the history of present illness and medical decision making. PHYSICAL EXAM: HR, BP, O2 Sat, RR. Temp noted General Appearance: Alert, well hydrated, appropriate, and non-toxic appearing. Head: Atraumatic without scalp tenderness or obvious injury Eyes: Pupils equal, round, reactive to light and accommodation, EOMI, no trauma , no injection. Ears: Clear bilaterally, no perforation, normal landmarks Nose: Atraumatic, no rhinorrhea, clear. Throat: There is no erythema or exudates, no lesions, normal tonsils, mucus membranes moist. Neck: Supple, nontender, no lymphadenopathy. Respiratory: No retractions, no distress, no wheezes, and no accessory muscle use. Lungs are clear to auscultation bilaterally. Cardiovascular: Irregular rate and rhythm, no murmurs, rubs, or gallops. Bilateral carotid, radial, dorsalis pedis, and posterior tibial pulses intact. Good capillary refill all extremities. Gastrointestinal: Abdomen is soft, nontender, non-distended, no masses, no rebound, no guarding, no peritoneal signs. Musculoskeletal: Normal active ROM of all extremities, atraumatic. Neurological: Alert, appropriate, and interactive. The patient has normal DTRs and non-focal cranial nerves, motor, sensory, and cerebellar exam. Skin: No rashes, good turgor, no nodules on palpation. Past medical history: Atrial fibrillation, hypertension, peripheral neuropathy, hiatal hernia, lymphoma, shingles encephalitis Past surgical history: Bilateral TKR Family history: Denies Social history: at bedside, lives in [place], retired DIAGNOSTICS/PROCEDURES/CRITICAL CARE TIME: EKG: The 12 lead EKG was interpreted by myself as atrial flutter with predominant 2:1 AV block and a rate of 138, left anterior fascicular block, prolonged QT interval. See hard copy and/or "tracemaster" electronic copy for interpretation. Procedure: Conscious sedation. Indication: Electrical cardioversion The patient is an appropriate candidate to tolerate procedural sedation. The patient's vitals signs and mental status are appropriate. The risks, benefits and alternatives of the sedation were discussed with the patient. The patient is ASA classification 1. The patient's Mallampati airway score was 1 and the patient did meet the 3-3-2 airway measurements. A time out was completed. The patient was sedated with 40mg IV Ketamine and 60mg IV Propofol. The patient was monitored with continuous pulse oximetry, groundwater monitoring technician and end tidal CO2. There were no complications and no significant hypoxemia. I performed both the sedation and the procedure. The total time I spent at the bedside during the procedural sedation was 25 minutes. The patient was examined after the procedural sedation and has returned to their pre-sedation baseline with normal vital signs and a normal examination. Procedure: Electrical Cardioversion. Indication: Dysrhythmia. Risks, benefits, alternatives discussed with the patient and consent obtained. The patient was on a continuous hall monitor, with airway equipment at the bedside. The patient was on continuous pulse oximetry and passive CO2 monitor. The cardioversion was performed with 360 joules biphasic current. The cardioversion was not successful. The patient tolerated the procedure well with no complications. The procedure was performed by myself. Procedure: Electrical Cardioversion. Indication: Dysrhythmia. Risks, benefits, alternatives discussed with the patient and consent obtained. The patient was on a continuous hall monitor, with airway equipment at the bedside. The patient was on continuous pulse oximetry and passive CO2 monitor. The cardioversion was performed with 360 joules biphasic current. The cardioversion was not successful. The patient tolerated the procedure well with no complications. The procedure was performed by myself. EKG: The 12 lead EKG was interpreted by myself as atrial fibrillation with a rate of 108, left axis deviation, prolonged QT interval. See hard copy and/or "tracemaster" electronic copy for interpretation. Critical care time spent by me, Dr. Schafer, exclusively with this patient was 60 minutes, exclusive of PA time and exclusive of procedures. The organ system at risk was cardiovascular and I performed two cardioversions to prevent worsening of the patients condition. DIFFERENTIAL DIAGNOSIS: The differential diagnosis for the patient's irregular heart rate included but was not limited to atrial fibrillation, myocardial ischemia, pulmonary embolus, chest wall pain, pleural inflammation, and pulmonary infectious causes. MEDICAL DECISION MAKING: The patient is an anticoagulated (Coumadin) 87 y/o male with a history of atrial fibrillation and hypertension presenting with an irregular heart rate this morning. On exam he has an irregular rate and rhythm. The patient had an INR of 2.7 yesterday and most likely went into the irregular rhythm in the middle of the night last night. EKG and labs ordered. 0810: I interpreted patient's EKG as atrial flutter with predominant 2:1 AV block and a rate of 138, left anterior fascicular block, prolonged QT interval. 0825: Reassessed patient and discussed EKG findings. I discussed plan for an electrical cardioversion, which he is comfortable with having. 0835: Reassessed patient and prepared him for the electrical cardioversion. He has a negative POC troponin. There is a slight elevation in his BNP but his room air is normal. 0840: Patient's BP is 101/78 and his HR is 112 beats per minute. 0842: 40mg IV Ketamine and 40mg IV propofol administered. 0843: Additional 20mg IV Propofol administered. 0844: 360J shock administered, patient is still in a-flutter with a rate of 118 0845: Additional shock of 360J administered, he is still in a-flutter with a rate of 109. I will consult with the electric wheelchair repairer as his conversion was not successful. 0850: I interpreted patient's EKG as atrial fibrillation with a rate of 108, left axis deviation, prolonged QT interval. 0856: I consulted with Dr. Maddox, electric wheelchair repairer, regarding this patient to discuss possibility of admission. The patient has no shortness of breath, chest pain or pressure, lightheadedness or dizziness. We will wait for the amiodarone to load into his systems before another cardioversion is preformed. This patient is safe to be discharged home. The patient will need to double Coreg and follow up with Dr. Mota, electric wheelchair repairer. 0902: Reassessed patient and discussed plan for discharge home with a follow up with Dr. Mota. 10mg IV Diltiazem administered prior to discharge. 0958: Reassessed patient, he continues to feel better. I have answered all of their questions and had a long discussion regarding their concerns. Strict return precautions provided; the patient and his are comfortable with this plan. - Data Points Laboratory Results: Laboratory Results 12/10/17 08:15 12/10/17 08:15 12/10/17 12/10/17 12/10/17 08:16 08:15 08:15 WBC RBC Hgb Hct MCV MCH MCHC RDW Plt Count MPV Neut % (Auto) Lymph % (Auto) [place] % (Auto) Eos % (Auto) Baso % (Auto) Nucleat RBC Rel Count Absolute Neuts (auto) Absolute Lymphs (auto) Absolute Monos (auto) Absolute Eos (auto) Absolute Basos (auto) Absolute Nucleated RBC Immature Gran % Immature Gran # PT 28.0 SEC H SEC (12.0-15.0) INR 2.63 H (0.83-1.16) APTT 40.8 SEC H SEC (23.0-38.0) Sodium 138 mEq/L mEq/L (135-145) Potassium 4.5 mEq/L mEq/L (3.3-5.0) Chloride 104 mEq/L mEq/L (97-110) Carbon Dioxide 26 mEq/l mEq/l (22-31) Anion Gap 8 mEq/L mEq/L (8-16) BUN 24 mg/dL H mg/dL (7-23) Creatinine 1.1 mg/dL mg/dL (0.7-1.3) Estimated GFR > 60 Glucose 96 mg/dL mg/dL (70-100) Calcium 9.3 mg/dL mg/dL (8.5-10.4) Magnesium 2.0 mg/dL mg/dL (1.6-2.3) POC Troponin I 0.02 ng/mL ng/mL (0.00-0.08) NT-Pro-B Natriuret Pep 2100 pg/mL H pg/mL (0-450) 12/10/17 08:15 WBC 5.71 10^3/uL 10^3/uL (3.80-9.50) RBC 5.15 10^6/uL 10^6/uL (4.40-6.38) Hgb 15.1 g/dL g/dL (13.7-17.5) Hct 44.7 % % (40.0-51.0) MCV 86.8 fL fL (81.5-99.8) MCH 29.3 pg pg (27.9-34.1) MCHC 33.8 g/dL g/dL (32.4-36.7) RDW 15.1 % % (11.5-15.2) Plt Count 326 10^3/uL 10^3/uL (150-400) MPV 9.6 fL fL (8.7-11.7) Neut % (Auto) 61.1 % % (39.3-74.2) Lymph % (Auto) 18.4 % % (15.0-45.0) [place] % (Auto) 12.6 % % (4.5-13.0) Eos % (Auto) 5.4 % % (0.6-7.6) Baso % (Auto) 1.4 % % (0.3-1.7) Nucleat RBC Rel Count 0.0 % % (0.0-0.2) Absolute Neuts (auto) 3.49 10^3/uL 10^3/uL (1.70-6.50) Absolute Lymphs (auto) 1.05 10^3/uL 10^3/uL (1.00-3.00) Absolute Monos (auto) 0.72 10^3/uL 10^3/uL (0.30-0.80) Absolute Eos (auto) 0.31 10^3/uL 10^3/uL (0.03-0.40) Absolute Basos (auto) 0.08 10^3/uL 10^3/uL (0.02-0.10) Absolute Nucleated RBC 0.00 10^3/uL 10^3/uL (0-0.01) Immature Gran % 1.1 % % (0.0-1.1) Immature Gran # 0.06 10^3/uL 10^3/uL (0.00-0.10) PT INR APTT Sodium Potassium Chloride Carbon Dioxide Anion Gap BUN Creatinine Estimated GFR Glucose Calcium Magnesium POC Troponin I NT-Pro-B Natriuret Pep Medications Given: Discontinued Medications Diltiazem HCl (Cardizem 25 Mg/5 Ml Vial) 10 mg IVP EDNOW ONE Stop: 12/10/17 09:07 Last Admin: 12/10/17 09:09 Dose: 10 mg Ketamine HCl (Ketamine) 40 mg IVP EDNOW ONE Stop: 12/10/17 09:06 Last Admin: 12/10/17 09:09 Dose: 40 mg Propofol (Diprivan) 60 mg IVP EDNOW ONE Stop: 12/10/17 09:05 Last Admin: 12/10/17 09:09 Dose: 60 mg Point of Care Test Results: Chemistry 12/10/17 08:16 POC Troponin I 0.02 ng/mL ng/mL (0.00-0.08) Departure - Departure Disposition: Home, Routine, Self-Care Clinical Impression: Atrial fibrillation Qualifiers: Atrial fibrillation type: unspecified Qualified Code(s): I48.91 - Unspecified atrial fibrillation Condition: Good Instructions: Atrial Flutter (ED), A-fib (Atrial Fibrillation) (ED), Cardioversion (DC) Additional Instructions: 1. Double your dose of Coreg to 6.25 twice a day. 2. Follow-up with Dr. Mota, electric wheelchair repairer, on Tuesday. 3. Return to the Emergency Department for fever, chest pain, shortness of breath , lightheadedness, dizziness, increasing pain or other worsening of condition. Referrals: Jim Bo MD [Primary Care Provider] - As per Instructions Bridger Mota MD [Medical Doctor] - As per Instructions Report Scribed for: David Schafer Report Scribed by: Lindsey Mariee Date of Report: 12/10/17 Time of Report: 08:19
[2017-12-10 08:28] LABS: PLATELET COUNT 326 10^3/uL (150-400)
[2017-12-10] MEDS ORDERED: KETAMINE 200 MG/20 ML VIAL ONE (08:34)
[2017-12-10] MEDS ORDERED: PROPOFOL 200 MG/20 ML VIAL ONE (08:34)
--- NOTE | 2017-12-10 08:51 | CPEKG ---
Test Reason : OPEN Blood Pressure : / mmHG Vent. Rate : 138 BPM Atrial Rate : 309 BPM P-R Int : 093 ms QRS Dur : 088 ms QT Int : 332 ms P-R-T Axes : 000 -43 070 degrees QTc Int : 503 ms Atrial flutter with predominant 2:1 AV block Left anterior fascicular block Prolonged QT interval Confirmed by David Schafer ([id number]) on 12/10/2017 8:51:32 AM Referred By: Confirmed By:David Schafer
[2017-12-10] MEDS ORDERED: PROPOFOL 200 MG/20 ML VIAL IVP ONE (09:04)
[2017-12-10] MEDS ORDERED: KETAMINE 500 MG/10 ML VIAL IVP ONE (09:05)
[2017-12-10] MEDS ORDERED: DILTIAZEM 25 MG/5 ML VIAL IVP ONE (09:06)
[2017-12-10 09:57] LABS: INR 2.63 (0.83-1.16)
[2017-12-10 10:02] VITALS: BP 87/50
--- NOTE | 2017-12-10 10:22 | CPEKG ---
Test Reason : OPEN Blood Pressure : / mmHG Vent. Rate : 108 BPM Atrial Rate : 160 BPM P-R Int : 160 ms QRS Dur : 094 ms QT Int : 396 ms P-R-T Axes : 000 -34 057 degrees QTc Int : 531 ms Atrial fibrillation Left axis deviation Prolonged QT interval Confirmed by David Schafer ([id number]) on 12/10/2017 10:21:51 AM Referred By: Confirmed By:David Schafer
== END 2017-12-10 10:01 | disposition home or self-care (01) ==
PROC: 5A2204Z Restoration of Cardiac Rhythm, Single (ICD-10-PCS; principal; 2017-12-10)
DX: I48.91 Unspecified atrial fibrillation (principal); Z79.01 Long term (current) use of anticoagulants; I10 Essential (primary) hypertension; C85.90 Non-Hodgkin lymphoma, unspecified, unspecified site; Z96.653 Presence of artificial knee joint, bilateral
CPT/HCPCS: 92960; 93005; 96374; 99291; J2704; 84484-PO

== ENCOUNTER 2018-01-05 09:31 | Day surgery (SDC) | payer OTHER, BC ==
[2018-01-05] MEDS ORDERED: MIDAZOLAM 2 MG/2 ML VIAL IVP ONE (09:32)
[2018-01-05] MEDS ORDERED: NS 500 ML IV ONE (09:32)
[2018-01-05] MEDS ORDERED: ATROPINE SULFATE 1 MG/10 ML SYR IVP ONE (09:32)
[2018-01-05] MEDS ORDERED: fentaNYL 100 MCG/2 ML INJ IVP ONE (09:32)
--- NOTE | 2018-01-05 15:42 | CPEKG ---
Test Reason : OPEN Blood Pressure : / mmHG Vent. Rate : 055 BPM Atrial Rate : 056 BPM P-R Int : 196 ms QRS Dur : 101 ms QT Int : 499 ms P-R-T Axes : 047 -31 028 degrees QTc Int : 478 ms Sinus rhythm Left axis deviation Abnormal R-wave progression, early transition Borderline prolonged QT interval Confirmed by Issa Mccracken ([id number]) on 01/05/2018 3:42:33 PM Referred By: Confirmed By:Issa Mccracken
== END 2018-01-05 10:09 | disposition home or self-care (01) ==
LOC: FCATH 09:31
PROVIDERS: ATTEND Internal Medicine Interventional Cardiology
DX: I48.0 Paroxysmal atrial fibrillation (principal); I50.30 Unspecified diastolic (congestive) heart failure; I38 Endocarditis, valve unspecified; Z53.8 Procedure and treatment not carried out for other reasons

== ENCOUNTER 2018-02-22 21:15 | Emergency (ER) | payer OTHER, BC ==
[2018-02-22] MEDS ORDERED: NS 500 ML IV ONE (21:32)
[2018-02-22 21:52] LABS: PLATELET COUNT 285 10^3/uL (150-400)
--- NOTE | 2018-02-22 22:28 | EDPHY ---
H & P Stated Complaint: near syncope, n/v Time Seen by Provider: 02/22/18 22:00 HPI/ROS: HPI The patient presents with an episode of ALOC which occurred just prior to arrival, brought in by ambulance. The patient had is some diarrhea this morning after taking prune juice for constipation. He said that he did not drink much fluid throughout the day though is able to go on a 1 mi walk without difficulty. He went to a dinner tonight and while seated eating dinner he began to feel hot and faint. He felt nauseated. He had several people escort him out of the dinner. Paramedics on arrived. His noticed that during the episode he was slumped over, nonresponsive. He looked sweaty. He says his blood pressures normally 120/70. He has , off of his carvedilol about 10 days ago because it was causing him to feel sleepy. He is not sure if he may have taken an extra dose of his medications including amiodarone today because he noticed that yesterday's medications were not in the pill box, though this happens to him from time to time. He denies any shortness of breath, chest pain , palpitations. REVIEW OF SYSTEMS 10 systems were reviewed and negative with the exception of the elements mentioned in the history of present illness. PMHx: Atrial fibrillation on Coumadin, systolic CHF with last EF 30-35%, hypertension Soc Hx: Here with his family, housed PHYSICAL General Appearance: Alert, no distress Eyes: Pupils equal and round no pallor or injection ENT, Mouth: Mucous membranes dry Respiratory: There are no retractions, lungs are clear to auscultation Cardiovascular: Regular rate and rhythm Gastrointestinal: Abdomen is soft and non-tender, no masses, bowel sounds normal Neurological: A&O, moves all extremities Skin: Warm and dry, no rashes Musculoskeletal: Neck is supple non tender Extremities: symmetrical, full range of motion , no lower extremity edema Psychiatric: Patient is oriented X 3, there is no agitation Source: Patient, EMS, Old records Exam Limitations: No limitations - Personal History Current Tetanus/Diphtheria Vaccine: Yes Current Tetanus Diphtheria and Acellular Pertussis (TDAP): Yes Tetanus Vaccine Date: 2009 - Medical/Surgical History Hx Asthma: No Hx Chronic Respiratory Disease: No Hx Diabetes: No Hx Cardiac Disease: Yes Hx Renal Disease: No Hx Cirrhosis: No Hx Alcoholism: No Hx HIV/AIDS: No Hx Splenectomy or Spleen Trauma: No Other PMH: peripheral neuropathy - numbness toes, A FIB, HTN, Hiatal HERNIA. lymphoma. bilat TKR, shingles encephalitis, unsteadiness uses hiking poles - Social History Smoking Status: Never smoked Constitutional: Initial Vital Signs Temperature (C) 36.7 C 02/22/18 21:23 Heart Rate 81 02/22/18 21:23 Respiratory Rate 16 02/22/18 21:23 Blood Pressure 92/61 L 02/22/18 21:23 O2 Sat (%) 92 02/22/18 21:23 O2 Delivery Mode Room Air Allergies/Adverse Reactions: No Allergies [NKDA] Allergy (Verified 12/10/17 08:00) Home Medications: Medication Instructions Recorded Allopurinol [Allopurinol 100 MG 100 mg PO DAILY 12/04/17 (*)] Dicloxacillin Sodium [Dynapen 500 500 mg PO DAILY 12/04/17 MG (*)] Levothyroxine [Synthroid 75 mcg 75 mcg PO DAILY06 12/04/17 (*)] Multivitamins [Multivitamin (*)] 1 each PO DAILY 12/04/17 Omeprazole 40 mg PO DAILY 12/04/17 Warfarin Sodium [Coumadin 5MG (*)] 5 mg PO MOWEFR 12/04/17 Warfarin Sodium [Coumadin 5MG (*)] 7.5 mg PO SUTUTHSA 12/04/17 Amiodarone HCl [Pacerone (*)] 200 mg PO DAILY #30 tab 12/06/17 Carvedilol [Coreg (*)] 3.125 mg PO BIDMEAL #60 tab 12/06/17 Medical Decision Making - Diagnostics EKG Interpretation: EKG: Complete interpretation has been separately recorded in the Tracemaster archive. Summary impression: Left anterior fascicular block Imaging Results: Imaging Impressions Chest X-Ray 02/22/18 22:21 Impression: Mild cardiac silhouette enlargement, with a retrocardiac hiatal hernia and old granulomatous disease. There is no focal infiltrate, or evidence of congestive heart failure. Differential Diagnosis: 87-year-old male with history of CHF, atrial fibrillation on Coumadin, hypertension who presents with an episode that sounds to be presyncopal in nature associated with nausea, feeling of warmth, lightheadedness while seated at the dinner. Patient with an episode of diarrhea earlier in the day, recent medication changes. Now feels well though notably hypotensive with blood pressure of 88/52 in the room after a 500 cc bolus started by paramedics. Differential diagnosis includes hypovolemia, hypotension, electrolyte disturbance, heart failure decompensated. In the emergency department, patient received a total of 1 L of normal saline. Blood pressure improved to 107/67 and the patient remained in a normal sinus rhythm. He felt well. Labs did reveal hyponatremia which I attribute to dehydration related to his diarrhea this morning. Chest x-ray is normal showing no volume overload in BNP is also normal making acute decompensated heart failure unlikely. Other labs were unremarkable, except for INR which was not therapeutic. The patient was asymptomatic throughout his stay with no events on telemetry. I suspect due to his dehydration he suffered from a vasovagal episode. He has no ongoing diarrhea and has no nausea or vomiting. I offered him admission to the hospital, however he strongly prefers to return home. We were able to ambulate him without any symptoms of dizziness. He would like to go home. I have discussed strict return precautions. I explained to him that he will need to have his sodium rechecked in the next few days to make sure it has normalized. He is happy with this plan and can call his primary care doctor tomorrow for follow-up. - Data Points Laboratory Results: Laboratory Results 02/22/18 21:33 02/22/18 21:33 02/22/18 02/22/18 02/22/18 21:56 21:33 21:33 WBC 9.20 10^3/uL 10^3/uL (3.80-9.50) RBC 4.75 10^6/uL 10^6/uL (4.40-6.38) Hgb 14.1 g/dL g/dL (13.7-17.5) Hct 41.4 % % (40.0-51.0) MCV 87.2 fL fL (81.5-99.8) MCH 29.7 pg pg (27.9-34.1) MCHC 34.1 g/dL g/dL (32.4-36.7) RDW 15.7 % H % (11.5-15.2) Plt Count 285 10^3/uL 10^3/uL (150-400) MPV 9.6 fL fL (8.7-11.7) Neut % (Auto) 52.6 % % (39.3-74.2) Lymph % (Auto) 22.9 % % (15.0-45.0) [place] % (Auto) 16.2 % H % (4.5-13.0) Eos % (Auto) 5.0 % % (0.6-7.6) Baso % (Auto) 1.1 % % (0.3-1.7) Nucleat RBC Rel Count 0.0 % % (0.0-0.2) Absolute Neuts (auto) 4.84 10^3/uL 10^3/uL (1.70-6.50) Absolute Lymphs (auto) 2.11 10^3/uL 10^3/uL (1.00-3.00) Absolute Monos (auto) 1.49 10^3/uL H 10^3/uL (0.30-0.80) Absolute Eos (auto) 0.46 10^3/uL H 10^3/uL (0.03-0.40) Absolute Basos (auto) 0.10 10^3/uL 10^3/uL (0.02-0.10) Absolute Nucleated RBC 0.00 10^3/uL 10^3/uL (0-0.01) Immature Gran % 2.2 % H % (0.0-1.1) Immature Gran # 0.20 10^3/uL H 10^3/uL (0.00-0.10) PT INR APTT Sodium 129 mEq/L L mEq/L (135-145) Potassium 4.0 mEq/L mEq/L (3.3-5.0) Chloride 97 mEq/L mEq/L (97-110) Carbon Dioxide 21 mEq/l L mEq/l (22-31) Anion Gap 11 mEq/L mEq/L (6-14) BUN 16 mg/dL mg/dL (7-23) Creatinine 1.3 mg/dL mg/dL (0.7-1.3) Estimated GFR 52 Glucose 142 mg/dL H mg/dL (70-100) Calcium 9.3 mg/dL mg/dL (8.5-10.4) POC Troponin I 0.00 ng/mL ng/mL (0.00-0.08) NT-Pro-B Natriuret Pep 02/22/18 02/22/18 21:28 21:28 WBC RBC Hgb Hct MCV MCH MCHC RDW Plt Count MPV Neut % (Auto) Lymph % (Auto) [place] % (Auto) Eos % (Auto) Baso % (Auto) Nucleat RBC Rel Count Absolute Neuts (auto) Absolute Lymphs (auto) Absolute Monos (auto) Absolute Eos (auto) Absolute Basos (auto) Absolute Nucleated RBC Immature Gran % Immature Gran # PT 19.1 SEC H SEC (12.0-15.0) INR 1.59 H (0.83-1.16) APTT 34.8 SEC SEC (23.0-38.0) Sodium Potassium Chloride Carbon Dioxide Anion Gap BUN Creatinine Estimated GFR Glucose Calcium POC Troponin I NT-Pro-B Natriuret Pep 270 pg/mL pg/mL (0-450) Medications Given: Discontinued Medications Sodium Chloride (Ns) 500 mls @ 1,000 mls/hr IV EDNOW ONE PRN Reason: Protocol Stop: 02/22/18 22:01 Last Admin: 02/22/18 21:49 Dose: 500 mls Point of Care Test Results: Chemistry 02/22/18 21:56 POC Troponin I 0.00 ng/mL ng/mL (0.00-0.08) Departure - Departure Disposition: Home, Routine, Self-Care Clinical Impression: Pre-syncope, Hyponatremia Condition: Good Instructions: Hyponatremia (ED), Near Syncope (ED) Additional Instructions: Please make sure to drink fluids tomorrow and take it easy. I do recommend you check your blood pressure tomorrow if possible. You will need to get your sodium level rechecked and this can be done at the outpatient lab. Please call your primary care doctor's office tomorrow to arrange for lab recheck. Your INR was 1.6 today which is a bit on the low side. Please discuss this with your primary care doctor to see if your Coumadin should be adjusted. Return to the emergency department if worse in any way. Referrals: Jim Bo MD [Primary Care Provider] - As per Instructions
[2018-02-22 22:41] LABS: INR 1.59 (0.83-1.16); PROTIME(PATIENT) 19.1 SEC (12.0-15.0)
[2018-02-22 23:46] VITALS: BP 108/63
--- NOTE | 2018-03-01 07:05 | CPEKG ---
Test Reason : OPEN Blood Pressure : / mmHG Vent. Rate : 078 BPM Atrial Rate : 078 BPM P-R Int : 209 ms QRS Dur : 098 ms QT Int : 416 ms P-R-T Axes : 005 -61 024 degrees QTc Int : 474 ms Sinus rhythm Left anterior fascicular block Abnormal R-wave progression, early transition Confirmed by Terence Amos ([id number]) on 03/01/2018 7:05:05 AM Referred By: Confirmed By:Terence Amos
== END 2018-02-22 23:46 | disposition home or self-care (01) ==
LOC: EDUNIT#
DX: R55 Syncope and collapse (principal); E87.1 Hypo-osmolality and hyponatremia; E86.9 Volume depletion, unspecified; I48.91 Unspecified atrial fibrillation; I50.9 Heart failure, unspecified; Z79.01 Long term (current) use of anticoagulants
CPT/HCPCS: 84484-PO

== ENCOUNTER → 2018-03-28 | Outpatient (CLI) | payer OTHER, BC | LOC: BHFA 10:00 | PROVIDERS: ATTEND Internal Medicine | DX: I48.91 Unspecified atrial fibrillation (principal); I34.0 Nonrheumatic mitral (valve) insufficiency ==